=== PATIENT | female | born 1945 | race Caucasian/White ===

== ENCOUNTER 2016-09-12 09:30 | Outpatient (CLI) | payer MEDICARE, OTHER ==
[2016-09-12 11:31] LABS: ALT (SGPT) 18 U/L (0-55); AST (SGOT) 22 U/L (5-34); Alkaline Phosphatase 70 U/L (40-150); Anion Gap 14 mmol/L (10-20); BUN (Urea Nitrogen) 17 mg/dL (9.8-20.1); Bilirubin, Total 0.6 mg/dL (0.2-1.2); Calc. Creatinine Clearance 0 mL/min (70-130); Calcium 8.8 mg/dL (7.8-10.44); Carbon Dioxide 26 mmol/L (23-31); Cardiac Risk 3.2 (Less than 4.5); Chloride 103 mmol/L (98-107); Cholesterol 126 mg/dL (< 200 Desired); Estimated GFR-MDRD 69; Globulin 2.7 g/dL (2.4-3.5); Glucose 120 mg/dL (83-110); HDL Cholesterol 39 mg/dL (>60 Neg Risk); LDL Cholesterol, Calculated 73 mg/dL; Potassium 3.4 mmol/L (3.5-5.1); Protein, Total 6.7 g/dL (5.8-8.1); Sodium 140 mmol/L (136-145); Triglycerides 72 mg/dL (Less than 150)
[2016-09-12 11:47] LABS: Hemoglobin A1c 5.9 % (4.0-6.0)
[2016-09-12 13:31] LABS: #Basophils 0.1 thou/uL (0.0-0.2); #Eosinphils 0.3 thou/uL (0.0-0.7); #Lymphocytes 2.2 thou/uL (1.20-3.40); #Monocytes 0.4 thou/uL (0.11-0.59); %Basophils 1.5 % (0.0-1.0); %Eosinophils 4.8 % (0.0-10.0); %Monocytes 7.2 % (0.0-10.0); %Neutrophils 50.5 % (42.0-75.0); Hemoglobin 13.1 g/dL (12.0-16.0); Mean Corpuscular HGB CONC 33.4 g/dL (32.0-36.0); Mean Corpuscular Hemoglobin 30.1 pg (27.0-31.0); Mean Platelet Volume 7.4 fL (7.4-10.4); Platelet Count 262 thou/uL (130-400); RBC Distribution Width 12.2 % (11.5-14.5); Red Blood Cell (RBC) Count 4.36 mill/uL (4.20-5.40)
== END 2016-09-12 09:31 | disposition home or self-care (01) ==
LOC: MADLAB 09:30
PROVIDERS: ATTEND Family Medicine
DX: E11.9 Type 2 diabetes mellitus without complications (principal); R53.83 Other fatigue
CPT/HCPCS: 36415; 80053; 80061; 83036; 84443; 85025

== ENCOUNTER 2018-02-17 22:16 | Emergency (ER) | payer MEDICARE ==
[~2018-02-17 22:16] MED LIST: Sodium Chloride 0.9% 1,000 ML BAG ONE; Sodium Chloride 0.9% 100 ML BAG ONE; Sterile Water Irrigation 250 ML BOT ONE
[2018-02-17] MEDS ORDERED: Acetaminophen 500 MG TAB ONE (22:41)
[2018-02-17] MEDS ORDERED: Adacel (T-DAP) 0.5 ML VIAL ONE (22:41)
[2018-02-17 22:56] LABS: #Basophils 0.1 thou/uL (0.0-0.2); #Eosinphils 0.3 thou/uL (0.0-0.7); #Monocytes 0.8 thou/uL (0.11-0.59); %Basophils 1.3 % (0.0-1.0); %Eosinophils 3.4 % (0.0-10.0); %Lymphocytes 32.7 % (21.0-51.0); %Monocytes 8.7 % (0.0-10.0); Hemoglobin 13.4 g/dL (12.0-16.0); Mean Corpuscular HGB CONC 33.7 g/dL (32.0-36.0); Mean Corpuscular Hemoglobin 29.2 pg (27.0-31.0); Mean Corpuscular Volume 86.5 fL (78.0-98.0); Mean Platelet Volume 6.5 fL (7.4-10.4); Platelet Count 268 thou/uL (130-400); White Blood Cell (WBC) Count 9.3 thou/uL (4.8-10.8)
[2018-02-17 23:05] LABS: INR-International Normal Ratio 0.9; PTT 32.2 SEC (22.9-36.1); Prothrombin Time 12.5 SEC (12.0-14.7)
[2018-02-17 23:14] LABS: Anion Gap 17 mmol/L (10-20); BUN (Urea Nitrogen) 21 mg/dL (9.8-20.1); CK (CPK) 132 U/L (29-168); Calc. Creatinine Clearance 0 mL/min (70-130); Calcium 9.8 mg/dL (7.8-10.44); Carbon Dioxide 23 mmol/L (23-31); Chloride 105 mmol/L (98-107); Estimated GFR-MDRD 67; Glucose 99 mg/dL (83-110); Potassium 3.7 mmol/L (3.5-5.1); Sodium 141 mmol/L (136-145)
[2018-02-17 23:16] LABS: CKMB 1.9 ng/mL (0-6.6); Troponin I 0.013 ng/mL (< 0.028)
[2018-02-17] MEDS ORDERED: Fentanyl 100 MCG/2 ML VIAL ONE (23:21)
[2018-02-17] MEDS ORDERED: Crotalidae Polyvalent Antivenin 1 GM VIAL ONE (23:42)
[2018-02-18] MEDS ORDERED: Morphine 4 MG/ML VIAL ONE (00:18)
== END 2018-02-18 00:35 | disposition short-term general hospital (02) ==
LOC: MADERS 22:16
DX: T63.001A Toxic effect of unspecified snake venom, accidental (unintentional), initial encounter (principal); E78.5 Hyperlipidemia, unspecified; I10 Essential (primary) hypertension; Z79.82 Long term (current) use of aspirin; Z79.84 Long term (current) use of oral hypoglycemic drugs; Z79.899 Other long term (current) drug therapy
CPT/HCPCS: 80048; 82550; 82553; 84484; 85025; 85384; 85610; 85730; 86900; 86901; 90715; 93005; J0840; 90471; 96361; 96365; 96375; J1800; J2270; J3010; J7050

== ENCOUNTER 2019-05-01 15:46 | Outpatient (CLI) | payer MEDICARE ==
--- NOTE | 2019-05-01 16:20 | RAD ---
EXAM: Chest Two Views 05/01/2019 4:14 PM HISTORY: Right shoulder pain COMPARISON: Chest radiograph dated March 07, 2013 FINDINGS: Heart: Normal in size and contour. There are moderate calcifications involving the aortic arch. Pulmonary vessels: Normal. Costophrenic angles: Clear. Lungs: There is airspace opacification within the posterior medial right lower lobe suspicious for pn eumonia. The left lung is clear. Pneumothorax: None. Osseous structures:There are bilateral postoperative changes of a rotator cuff repair there is mild s pondylosis of the thoracic spine. Additional findings: None. IMPRESSION: Airspace opacification within the posterior medial right lower lobe is suspicious for developing pneu monia. Recommend radiographic follow-up to resolution. Postoperative change of bilateral rotator cuff repairs.
--- NOTE | 2019-05-01 16:21 | RAD ---
XR Shoulder Rt 3 View STANDARD HISTORY: Right shoulder pain FINDINGS: No fracture or dislocation is identified. There are postop changes of rotator cuff repair.
--- NOTE | 2019-05-01 16:27 | RAD ---
4 views of the left wrist: 05/01/2019 4:04 PM CLINICAL INDICATION: Left wrist and hand swelling; no history of trauma COMPARISON: None. FINDINGS: Bones: No acute osseous abnormality. Joints: There is moderate first CMC and STT osteoarthrosis.. Soft Tissue: Normal.. IMPRESSION: No acute fracture or subluxation demonstrated. Moderate first CMC and STT osteoarthrosis.
--- NOTE | 2019-05-01 16:28 | RAD ---
XR Hand Lt 3 View STANDARD: 05/01/2019 4:03 PM CLINICAL INDICATION: Left hand and wrist swelling without history of trauma COMPARISON: None. FINDINGS: Bones: No acute osseous abnormality. Joints: There is moderate first CMC and STT osteoarthrosis. There is scattered mild to moderate IP os teoarthrosis. This is most severely affecting the left index finger DIP joint. Soft Tissue: Soft tissues are normal appearing. IMPRESSION: Scattered osteoarthrosis of the left hand. No acute fracture or subluxation demonstrated..
== END 2019-05-01 15:47 | disposition home or self-care (01) ==
LOC: MADRAD 15:46
DX: M25.511 Pain in right shoulder (principal); M25.532 Pain in left wrist; M79.642 Pain in left hand; M18.12 Unilateral primary osteoarthritis of first carpometacarpal joint, left hand; M19.032 Primary osteoarthritis, left wrist; R91.8 Other nonspecific abnormal finding of lung field; Z98.890 Other specified postprocedural states
CPT/HCPCS: 71046

== ENCOUNTER 2019-08-28 12:11 | Outpatient (CLI) | payer MEDICARE ==
--- NOTE | 2019-08-28 13:18 | RAD ---
EXAM: Left wrist 4 views: HISTORY: Left wrist pain without trauma COMPARISON: 05/01/2019 FINDINGS: Stable appearance from prior study. Osteoarthrosis and degenerative changes. No acute fracture or dislocation or other significant acute osseous abnormality. IMPRESSION: No significant acute process.
== END 2019-08-28 12:12 | disposition home or self-care (01) ==
LOC: MADRAD 12:11
PROVIDERS: ATTEND Family Medicine
DX: M25.532 Pain in left wrist (principal)

== ENCOUNTER 2020-01-21 07:09 | Outpatient (CLI) | payer MEDICARE ==
--- NOTE | 2020-01-21 07:39 | RAD ---
Right shoulder 3 views HISTORY: Injury. COMPARISON: 05/01/2019. FINDINGS: Elevation of the right humeral head lying immediately inferior to the acromion is again dem onstrated with cortical remodeling of the articular surfaces. Prominent osteophytosis at the acromiohumeral joint. Metallic anchors from prior surgery. Acromioclavicular alignment is maintained. No acute fracture, dislocation, or aggressive osseous erosions. A 0.6 cm irregular calcification infe rior to the glenoid is unchanged in appearance and may represent an intracapsular loose body. IMPRESSION : Prominent osteoarthritic and postoperative changes with evidence of chronic complete rotator cuff tea r. Probable intracapsular loose body at the subcoracoid or axillary recess. No acute osseous abnormalities are demonstrated.
[2020-01-21 07:50] LABS: #Basophils 0.1 thou/uL (0.0-0.2); #Eosinphils 0.3 thou/uL (0.0-0.7); #Lymphocytes 1.6 thou/uL (1.20-3.40); #Monocytes 0.4 thou/uL (0.11-0.59); #Neutrophils 3.1 thou/uL (1.40-6.50); %Basophils 1.5 % (0.0-1.0); %Eosinophils 5.1 % (0.0-10.0); %Lymphocytes 29.7 % (21.0-51.0); %Monocytes 7.6 % (0.0-10.0); %Neutrophils 56.2 % (42.0-75.0); Hemoglobin 12.6 g/dL (12.0-16.0); Mean Corpuscular Hemoglobin 29.3 pg (27.0-31.0); Mean Corpuscular Volume 88.9 fL (78.0-98.0); Mean Platelet Volume 6.6 fL (7.4-10.4); Platelet Count 286 thou/uL (130-400); RBC Distribution Width 11.9 % (11.5-14.5); White Blood Cell (WBC) Count 5.5 thou/uL (4.8-10.8)
[2020-01-21 07:57] LABS: ALT (SGPT) 18 U/L (8-55); AST (SGOT) 17 U/L (5-34); Albumin 4.1 g/dL (3.4-4.8); Alkaline Phosphatase 74 U/L (40-110); Anion Gap 13 mmol/L (10-20); BUN (Urea Nitrogen) 19 mg/dL (9.8-20.1); Bilirubin, Total 0.4 mg/dL (0.2-1.2); Calc. Creatinine Clearance 0 mL/min (70-130); Calcium 8.7 mg/dL (7.8-10.44); Carbon Dioxide 26 mmol/L (23-31); Chloride 107 mmol/L (98-107); Estimated GFR-MDRD 72; Globulin 3.1 g/dL (2.4-3.5); Glucose 131 mg/dL (83-110); Potassium 3.5 mmol/L (3.5-5.1); Protein, Total 7.2 g/dL (6.0-8.3); Sodium 142 mmol/L (136-145)
[2020-01-22 15:34] LABS: ANA Symphony (Qualitative) Negative (Negative); ANA Symphony (Quantitative) 0.2 Ratio (< 0.7 Negative); EliA RAS New Method **** NEW METHOD ****; Rheumatoid Factor IgA Antibody 9.2 IU/mL (<14 Negative); Rheumatoid Factor IgM Antibody Less than 0.5 IU/mL (<3.5 Negative); dsDNA IgG Antibody Less than 0.5 IU/mL (<10 Negative)
== END 2020-01-21 07:10 | disposition home or self-care (01) ==
LOC: MADLAB 07:09
PROVIDERS: ATTEND Family Medicine
DX: M25.511 Pain in right shoulder (principal); I87.2 Venous insufficiency (chronic) (peripheral); M75.121 Complete rotator cuff tear or rupture of right shoulder, not specified as traumatic; M19.012 Primary osteoarthritis, left shoulder; Z98.890 Other specified postprocedural states
CPT/HCPCS: 36415; 80053; 83520; 84443; 85025; 86038; 86225

== ENCOUNTER 2020-10-15 10:59 | Outpatient (CLI) | payer MEDICARE ==
[2020-10-15 11:21] LABS: #Basophils 0.1 thou/uL (0.0-0.2); #Eosinphils 0.2 thou/uL (0.0-0.7); #Monocytes 0.5 thou/uL (0.11-0.59); #Neutrophils 3.2 thou/uL (1.40-6.50); %Basophils 2.5 % (0.0-1.0); %Eosinophils 3.5 % (0.0-10.0); %Lymphocytes 33.3 % (21.0-51.0); %Monocytes 7.8 % (0.0-10.0); %Neutrophils 52.9 % (42.0-75.0); Hemoglobin 13.6 g/dL (12.0-16.0); Mean Corpuscular HGB CONC 31.7 g/dL (32.0-36.0); Mean Corpuscular Hemoglobin 29.3 pg (27.0-31.0); Mean Corpuscular Volume 92.4 fL (78.0-98.0); Platelet Count 268 thou/uL (130-400); RBC Distribution Width 12.7 % (11.5-14.5); Red Blood Cell (RBC) Count 4.63 mill/uL (4.20-5.40)
[2020-10-15 11:36] LABS: ALT (SGPT) 22 U/L (8-55); AST (SGOT) 21 U/L (5-34); Albumin 4.3 g/dL (3.4-4.8); Alkaline Phosphatase 77 U/L (40-110); Anion Gap 17 mmol/L (10-20); BUN (Urea Nitrogen) 19 mg/dL (9.8-20.1); Bilirubin, Total 0.7 mg/dL (0.2-1.2); Calc. Creatinine Clearance 0 mL/min (70-130); Calcium 8.7 mg/dL (7.8-10.44); Carbon Dioxide 24 mmol/L (23-31); Chloride 104 mmol/L (98-107); Globulin 3.4 g/dL (2.4-3.5); Glucose 116 mg/dL (83-110); Potassium 3.6 mmol/L (3.5-5.1); Protein, Total 7.7 g/dL (5.8-8.1); Sodium 141 mmol/L (136-145)
== END 2020-10-15 11:00 | disposition home or self-care (01) ==
LOC: MADLAB 10:59
PROVIDERS: ATTEND Family Medicine
DX: R06.02 Shortness of breath (principal); M79.89 Other specified soft tissue disorders
CPT/HCPCS: 36415; 71046; 80053; 83880; 84443; 85025; 85379

== ENCOUNTER 2021-04-21 11:31 | Outpatient (CLI) | payer MEDICARE ==
[2021-04-21 12:02] LABS: #Basophils 0.1 thou/uL (0.0-0.2); #Eosinphils 0.2 thou/uL (0.0-0.7); #Lymphocytes 1.7 thou/uL (1.20-3.40); #Monocytes 0.5 thou/uL (0.11-0.59); #Neutrophils 2.6 thou/uL (1.40-6.50); %Basophils 2.9 % (0.0-1.0); %Eosinophils 3.4 % (0.0-10.0); %Lymphocytes 33.7 % (21.0-51.0); Hemoglobin 13.6 g/dL (12.0-16.0); Mean Corpuscular HGB CONC 31.3 g/dL (32.0-36.0); Mean Corpuscular Hemoglobin 28.9 pg (27.0-31.0); Mean Corpuscular Volume 92.2 fL (78.0-98.0); Mean Platelet Volume 7.1 fL (7.4-10.4); Platelet Count 269 thou/uL (130-400); RBC Distribution Width 12.2 % (11.5-14.5); Red Blood Cell (RBC) Count 4.71 mill/uL (4.20-5.40)
[2021-04-21 12:19] LABS: ALT (SGPT) 21 U/L (8-55); AST (SGOT) 25 U/L (5-34); Albumin 4.4 g/dL (3.4-4.8); Alkaline Phosphatase 73 U/L (40-110); Anion Gap 11 mmol/L (10-20); BUN (Urea Nitrogen) 18 mg/dL (9.8-20.1); Bilirubin, Total 0.7 mg/dL (0.2-1.2); Calc. Creatinine Clearance 0 mL/min (70-130); Calcium 9.7 mg/dL (7.8-10.44); Carbon Dioxide 30 mmol/L (23-31); Cardiac Risk 2.5 (Less than 4.5); Chloride 103 mmol/L (98-107); Cholesterol 135 mg/dl (< 200 Desired); Globulin 3.2 g/dL (2.4-3.5); Glucose 113 mg/dL (83-110); HDL Cholesterol 54 mg/dL (>60 Neg Risk); LDL Cholesterol, Calculated 65 mg/dL; Potassium 3.6 mmol/L (3.5-5.1); Protein, Total 7.6 g/dL (5.8-8.1); Sodium 140 mmol/L (136-145); Triglycerides 79 mg/dL (Less than 150)
[2021-04-21 12:40] LABS: Thyroid Stimulating Hormone 0.6153 uIU/mL (0.35-4.94)
[2021-04-21 17:59] LABS: Creatinine, Urine 29.8 mg/dL (47-110); Microalbumin Urine 5.8 mg/dL (0.5-50.0); Microalbumin/Creat Ratio 194.6 mg/g (Less than 30)
[2021-04-21 18:20] LABS: Free T4 (Free Thyroxine) 1.05 ng/dL (0.70-1.48)
== END 2021-04-21 11:32 | disposition home or self-care (01) ==
LOC: MADLAB 11:31
PROVIDERS: ATTEND Family Medicine
DX: M25.551 Pain in right hip (principal); M25.552 Pain in left hip; E78.2 Mixed hyperlipidemia; E11.9 Type 2 diabetes mellitus without complications; I10 Essential (primary) hypertension; M16.0 Bilateral primary osteoarthritis of hip; Z79.02 Long term (current) use of antithrombotics/antiplatelets
CPT/HCPCS: 36415; 72170; 80053; 80061; 82043; 84439; 84443; 85025

== ENCOUNTER 2021-04-22 13:28 | Outpatient (CLI) | payer MEDICARE | END 2021-04-22 13:29 | disposition home or self-care (01) | LOC: MADCT 13:28 | PROVIDERS: ATTEND Family Medicine | DX: R51.9 Headache, unspecified (principal); R26.89 Other abnormalities of gait and mobility; Z86.011 Personal history of benign neoplasm of the brain | CPT/HCPCS: 70450 ==

== ENCOUNTER 2021-08-17 10:55 | Outpatient (CLI) | payer MEDICARE | END 2021-08-17 10:56 | disposition home or self-care (01) | LOC: MADLAB 10:55 → MADRAD 10:56 | PROVIDERS: ATTEND Family Medicine | DX: M75.121 Complete rotator cuff tear or rupture of right shoulder, not specified as traumatic (principal); M19.011 Primary osteoarthritis, right shoulder; M25.511 Pain in right shoulder ==

== ENCOUNTER 2022-11-16 13:11 | Outpatient (CLI) | payer MEDICARE ==
[2022-11-16 17:20] LABS: Microalbumin-Urine 1.5 mg/dL
[2022-11-16 19:16] LABS: Microalbumin/24 Hr 2.36 mg/24 hr (Less than 30)
== END 2022-11-16 13:12 | disposition home or self-care (01) ==
LOC: MADLABBHPM 13:11
PROVIDERS: ATTEND Family Medicine
DX: E11.29 Type 2 diabetes mellitus with other diabetic kidney complication (principal)
CPT/HCPCS: 82043